=== PATIENT | male | born 1980 | race Two or more races ===

== ENCOUNTER 2025-07-15 22:38 | Emergency (ER) | payer MEDICAID, SELFPAY ==
[2025-07-15 22:40] VITALS: BMI 31.9
[2025-07-15 22:53] VITALS: BP 118/72; PULSE 70; RESP 16; TEMP 36.7; O2SAT 97
[2025-07-15] MEDS: TETRACAINE PF OP SOL 0.5% 4 ML DRPETTE 1 DROP RIGHT EYE (23:18)
[2025-07-15] MEDS: FLUORESCEIN SOD 1 MG STRP RIGHT EYE (23:18)
--- NOTE | 2025-07-16 00:25 | PD.EDEYE ---
ED Eye Problem RME/HPI General Chief complaint: Eye Problems Stated complaint: R EYE INJURY Time Seen by Provider: 07/15/25 23:02 Arrival date/time: 07/15/25 22:38 This is a case of 44-year-old male with no medical history came in in the emergency room due to right eye irritation history of the present illness started around 1 PM patient was working in [employer] and felt something went to his right eye since then patient felt right eye irritation and redness no eye pain no blurring of vision patient states that he scratched his right eye hard and felt the irritation patient tetanus shot is not up-to-date Limitations: no limitations Related Data Home Medications ?Medication ?Instructions ?Recorded ?Confirmed NO HOME MEDS ##0 11/25/09 Previous Rx's ?Medication ?Instructions ?Recorded ofloxacin 0.3 % eye drops 1 drp ophthalmic (eye) QID 10 days 07/16/25 #10 mL Allergies Allergy/AdvReac Type Severity Reaction Status Date / Time No Known Allergies Allergy Unknown Uncoded 07/15/25 22:44 Review of Systems Review of Systems Systems Reviewed: All systems reviewed, normal except as documented Constitutional Constitutional: Reports system reviewed and no additional complaints, except as documented and Reports as per HPI Eyes Eyes: Reports system reviewed and no additional complaints, except as documented, Denies blind spots, Denies change in vision, Denies decreased night vision, Denies diplopia, Denies eye discharge, Denies dry eyes, Denies exophthalmos, Denies floaters, Reports irritation, Denies itchy eyes, Denies loss of peripheral vision, Denies loss of vision, Denies other visual disturbances, Denies eye pain, Denies photophobia, Denies requires corrective lenses, Denies seeing flashes, Denies spots in vision and Denies tunnel vision ENT Ears, Nose, Mouth, and Throat: Reports system reviewed and no additional complaints, except as documented and Reports as per HPI Cardiovascular Cardiovascular: Reports system reviewed and no additional complaints, except as documented and Reports as per HPI Respiratory Respiratory: Reports system reviewed and no additional complaints, except as documented and Reports as per HPI Gastrointestinal Gastrointestinal: Reports system reviewed and no additional complaints, except as documented and Reports as per HPI Neurologic Neurologic: Reports system reviewed and no additional complaints, except as documented, Reports as per HPI and Denies loss of vision Allergic/Immunologic Allergic/Immunologic: Denies itchy eyes Past Medical History Social History SMOKING STATUS: Never smoker ED Exam General Limitations: Present no limitations General appearance: Present alert, in no apparent distress and other (Patient is awake alert oriented not in distress nontoxic looking well-hydrated well nourished) Head Head exam: Present atraumatic, normocephalic and normal inspection Eye Eye exam: Present normal appearance, PERRL, EOMI and other (PERRL EOM intact right conjunctival redness but no conjunctival hemorrhage no palpable edema no hyphema no periorbital swelling both upper and lower right eyelid were normal no redness no swelling no foreign body no discharge noted right corneal abrasion on the 11 o'clock position but no corneal phyllis) ENT ENT exam: Present normal exam, normal oropharynx, mucous membranes moist and other (Normal HEENT exam) Neck Neck exam: Present normal inspection, full ROM and trachea midline; Absent tenderness, meningismus, lymphadenopathy or thyromegaly Chest Chest inspection: Present normal inspection and symmetric chest wall rise; Absent tenderness Respiratory Respiratory exam: Present normal lung sounds bilaterally; Absent respiratory distress, wheezes, stridor, accessory muscle use or prolonged expiratory phase Cardiovascular Cardiovascular exam: Present regular rate, normal rhythm and normal heart sounds; Absent bradycardia, tachycardia, irregular rhythm, systolic murmur or diastolic murmur Abdominal Exam Abdominal exam: Present soft and normal bowel sounds Extremities Exam Extremities exam: Present normal inspection and full ROM Back Exam Back exam: Present normal inspection and full ROM Neurological Exam Neurological exam: Present alert, oriented X3, CN II-XII intact, normal gait and reflexes normal; Absent motor sensory deficit Psychiatric Psychiatric exam: Present normal affect and normal mood Skin Skin exam: Present warm, dry, intact and normal color Course Quality Measures none Orders Category Date Time Status Visual Acuity NOW Care 07/15/25 23:04 Active Erythromycin Op Oint 0.5% Med 07/16/25 00:21 Once 1 gm RIGHT EYE X1 ONE Fluorescein Sodium [Bio-Barbara] Med 07/15/25 23:04 Discontinued 1 mg RIGHT EYE X1 ONE TET,DIP/PERT AC (Adult)-Tdap [Boostrix Adult (Tdap) Med 07/16/25 00:21 Once Vacc] 0.5 ml IMI .ONCE ONE TETRACAINE Op Emi 0.5% [Pontocaine Op Emi 0.5%] Med 07/15/25 23:04 Discontinued 1 drop RIGHT EYE X1 ONE Vital Signs Vital signs: Vital Signs Temperature 98.1 F 07/15/25 22:53 Pulse Rate 70 07/15/25 22:53 Respiratory Rate 16 07/15/25 22:53 Blood Pressure 118/72 07/15/25 22:53 Pulse Oximetry (%) 97 07/15/25 22:53 Oxygen Delivery Method Room Air 07/15/25 22:53 Oxygen saturation is 97% in room air Eye MDM Narrative MDM Narrative:: This is a case of 44-year-old male with no medical history came in in the emergency room due to right eye irritation history of the present illness started around 1 PM patient was working in [employer] and felt something went to his right eye since then patient felt right eye irritation and redness no eye pain no blurring of vision patient states that he scratched his right eye hard and felt the irritation patient tetanus shot is not up-to-date physical examination patient is awake alert oriented not in distress nontoxic looking well-hydrated well-nourished eye exam as follows PERRL EOMI intact noted conjunctival redness on the right eye but no subconjunctival hemorrhage no periorbital cellulitis or swelling both right upper and lower eyelid normal no redness no swelling no discharge no foreign body both visual acuity and peripheral vision were normal patient was placed on a lying position tetracaine was applied on the right eye with fluorescein strip visualized the right eye with Valero lamp noted a stain on the 11 o'clock position suggestive of corneal abrasion no corneal edema no corneal ulcer negative Alphonse sign the rest of the physical examination were normal irrigate the right eye with normal saline to remove the stain patient tolerated well the procedure erythromycin ointment was applied on the right eye and apply eye patch I discussed my finding to the son and the importance to see a supervisor meter shop was discussed with the patient and with the son within 2 days for further evaluation and treatment of right corneal abrasion there were informed that if they will not see the specialist complication was discussed including loosening of the eyesight worsening of the symptoms or any emergent concern return precaution to the ER was advised patient was also given tetanus shot here in the emergency room the patient and the son understood very well the discharge instruction Patient was discharged with comfortable condition walking with stable gait. Patient verbalized no further complains explained diagnosis and answered patient question. Patient is comfortable with the proposed management plan including the need to follow up with his/her primary care physician and any specialist if applicable Discussed patient for any urgent condition or worsening sx, He/She needed to go to emergency room immediately or call 911. Patient acknowledge the responsibility to follow up as instructed and to monitor her/his symptoms. For any persistence of the symptoms for more than 3-5 days return precaution advised. Discussed the result of the test and was given printed discharge instruction Patient data External records reviewed:: [facility] previous records Clinical information provided by:: patient Social determinants that could affect healthcare access:: none Patient has the following chronic illnesses:: None How is presenting disease/condition affected by chronic disease/condition?: no chronic disease Evaluation data The following diagnostics were reviewed and interpreted by me:: other (specify) (None) Lab and/or radiology exams considered but not ordered:: None Interpretation Summary: None Medications / Prescriptions Medications or Prescriptions considered but not ordered:: Given Medication administrations:: Medication Administration History Diphtheria/Tetanus/Acell Pertussis (Diphth,Pertuss(Acell),Tet Vac 0.5 Ml Syr- Adult) 0.5 ml IMi .ONCE ONE Stop: 07/16/25 00:22 Erythromycin (Erythromycin Op Oint 0.5% 1 Gm Packet) 1 gm RIGHT EYE X1 ONE Stop: 07/16/25 00:22 Discontinued Medications Fluorescein Sodium (Fluorescein Sod 1 Mg Strp) 1 mg RIGHT EYE X1 ONE Stop: 07/15/25 23:05 Last Admin: 07/15/25 23:18 Dose: 1 mg Documented By: DASH Tetracaine HCl (Tetracaine Pf Op Emi 0.5% 4 Ml Drpette) 1 drop RIGHT EYE X1 ONE Stop: 07/15/25 23:05 Last Admin: 07/15/25 23:18 Dose: 1 drop Documented By: DASH Given Consultations Consultation(s) initiated? (list below): No Diagnosis Eye Problem Differential Diagnosis: corneal abrasion Most likely diagnosis given after review of the tests above:: Corneal abrasion Admission Indicated Admission indicated?: not indicated Explain why admission is indicated or not indicated:: Not indicated Admission Request Was there a request for admission?: No Admission Attestation Admission request attestation: Not indicated Disposition Plan Disposition Plan: Discharge Discharge Attestation Discharge Attestation: The patient and all family members were given an opportunity to ask questions and understood the discharge instructions. Discharge instructions specifically effects, indications for sooner follow up or return to the emergency department, and the expected course of current diagnosis. Patient condition: Stable Discharge Plan Plan Patient Disposition: HOME (Self Care) Patient condition on transfer: Stable Prescriptions/Referrals Prescriptions/Med Rec: New ofloxacin 0.3 % drops 1 drp ophthalmic (eye) QID 10 Days Qty: 10 0RF Rx Instructions: right eye No Action NO HOME MEDS Qty: 0 Problem List Clinical Impression: Corneal abrasion Patient/Caregiver Discharge Instructions Education Materials: ED Corneal Abrasion Additional Instructions: Follow-up with your primary care physician in 2 days for reevaluation it is very important to see an supervisor meter shop in 2 days for reevaluation and further treatment of right corneal abrasion worsening of the symptoms such as headache dizziness blurring of vision a chest or eye pain return to the emergency room immediately or call 911 apply the medication as directed keep the eye patch in place until cleared by the supervisor meter shop no eyestrain no watching TV no driving no cell phone do not scratch your eye doctor Print Language: Thai Stand Alone Forms: Sierra Award Info., Patient Portal Info Letter PA/[facility] SPECIALIST Supervising Physician HEBERT/CHIRAG Supervising Physician: Dr. Juan
[2025-07-16] MEDS: DIPHTH,PERTUSS(ACELL),TET VAC 0.5 ML SYR- ADULT IMi (00:36)
[2025-07-16] MEDS: Erythromycin Op Oint 0.5% 1 GM PACKET RIGHT EYE (00:36)
== END 2025-07-16 00:40 | disposition home or self-care (01) ==
LOC: SERX 07-16 00:24
PROVIDERS: Emergency Provider Emergency Medicine; PCP Family Medicine
DX: S05.01XA Injury of conjunctiva and corneal abrasion without foreign body, right eye, initial encounter (principal); W44.9XXA Unspecified foreign body entering into or through a natural orifice, initial encounter
CPT/HCPCS: 90471; 90715; 99281; A9270